=== PATIENT | male | born 2000 | race Caucasian/White ===

== ENCOUNTER 2019-11-29 20:36 | Inpatient (IN) | payer MEDICAID ==
[~2019-11-29] VITALS: Ht 180.3 cm; Wt 64.0 kg
[~2019-11-29 20:36] MED LIST: INSU100I18 SQ; INSU100I28 SQ
--- NOTE | 2019-11-29 20:42 | NUR ---
EKG DONE ON ARRIVAL.
--- NOTE | 2019-11-29 20:48 | NUR ---
PT BIB [facility] FROM [facility] FOR DKA AND PNA/SEPSIS. PT STS WASNT FEELING GOOD 3 DAYS AGO, DID METH. UPON ARRIVAL TO ER, BLOOD SUGAR CHECKED IN ELEVATOR 415, INSULIN RUNNING AT 6UNITS/HOUR. IVS X2. RECEIVED 2L NS, DATA COMMUNICATIONS ENGINEER. ABX ZOSYN GIVEN DATA COMMUNICATIONS ENGINEER. RITCHIE IN PLACE ON ARRIVAL, SECURMENT DEVICE IN PLACE. CONNECTED TO ALL MONITORING, RAPID RESP, TACHY HR. A&OX4, FOLLOWING COMMANDS. MD TO BEDSIDE. VERBAL ORDER RECEIVED FOR 3RD LITER NS TO BE STARTED AND TO DISCONTINUE INSULIN DRIP. PT GIVEN BLANKETS FOR COMFORT. CALL LIGHT WITHIN REACH. AWAITING FURTHER ORDERS AT THIS TIME.
[2019-11-29] MEDS ORDERED: INSULIN SINGLE DOSE, ER ONE (20:49)
--- NOTE | 2019-11-29 20:54 | NUR ---
PT MEDICATED PER EMAR. CALL LIGHT IN REACH. WILL CONTINUE TO MONITOR.
[2019-11-29] MEDS ORDERED: INSULIN REGULAR 100 UNITS/ML, 3ML VIAL IVPush ONE (21:00)
[2019-11-29] MEDS ORDERED: SODIUM CHLORIDE 0.9% 1,000ML IVBOLUS ONE (21:00)
[2019-11-29 21:46] LABS: AMPHETAMINE SCREEN, URINE Negative (Negative); BARBITURATE SCREEN, URINE Negative (Negative); BENZODIAZEPINE SCREEN, URINE Negative (Negative); CANNABINOID SCREEN, URINE Negative (Negative); COCAINE SCREEN, URINE Negative (Negative); METHADONE SCREEN, URINE Negative (Negative); OPIATE SCREEN, URINE Negative (Negative)
--- NOTE | 2019-11-29 21:54 | NUR ---
PHONE CALL TO LAB. LABS RUNNING NOW.
[2019-11-29 21:55] LABS: MEAN CORPUSCULAR HEMOGLOBIN 32.3 pg (27.5-34.5); MEAN CORPUSCULAR HGB CONC 33.8 g/dL (33.2-36.2); MEAN CORPUSCULAR VOLUME 95.5 fL (81-97); MEAN PLATELET VOLUME 6.5 fL (7.4-10.4); PLATELET COUNT 575 x10^3/uL (130-400); RED BLOOD COUNT 4.16 x10^6/uL (4.38-5.82); RED CELL DISTRIBUTION WIDTH 13.9 % (9.4-14.8)
[2019-11-29 21:58] LABS: FIO2 ROOM AIR %
[2019-11-29 22:02] LABS: ACETONE, SERUM Large (80mg/dL) mg/dL (Negative)
[2019-11-29 22:08] LABS: ALBUMIN 2.2 g/dL (3.4-5.0); ANION GAP 23 mmol/L (5-15); CALCIUM 7.4 mg/dL (8.5-10.1); CHLORIDE 102 mmol/L (98-107); CREATININE 0.97 mg/dL (0.7-1.3)
--- NOTE | 2019-11-29 22:16 | NUR ---
PT CURRENTLY SLEEPING COMFORTABLY IN ROOM, NADN. HR DECREASING BUT STILL TACHY AT 115, RR 24, OTHER VSS. ADMIT ORDERS RECEIVED. AWAITING BED AT THIS TIME. CALL LIGHT WITHIN REACH.
[2019-11-29] MEDS ORDERED: D5%-0.45% NACL 1,000 ML IV PRN (22:29)
[2019-11-29] MEDS ORDERED: REGULAR INSULIN 100 UNITS in SODIUM CHLORIDE 0.9% 99 ML IV PRN (22:29)
[2019-11-29] MEDS ORDERED: SODIUM BICARBONATE 1 MEQ/ML, 50ML VIAL IVPush ONE (22:30)
[2019-11-29] MEDS ORDERED: SODIUM BICARB 8.4%, 50ML SYRINGE IVPB PRN (22:30)
[2019-11-29] MEDS ORDERED: ONDANSETRON 2MG/ML, 2ML IVPush PRN (22:30)
[2019-11-29 22:34] LABS: MD YES
[2019-11-29 22:36] LABS: BAND#(MANUAL) 0.68 x10^3/uL; BANDS%(MANUAL) 3 % (0-7); LYMPH#(MANUAL) 4.79 x10^3/uL (1-6.1); LYMPHS% (MANUAL) 21 % (22-44); MONOS#(MANUAL) 0.68 x10^3/uL (0.3-2.7); MONOS% (MANUAL) 3 % (2-9); SEG#(MANUAL) 16.64 x10^3/uL (1.8-8); SEGS% (MANUAL) 73 % (42-75)
[2019-11-29 22:37] LABS: <PLATELET ESTIMATE> INCREASED; <RBC MORPHOLOGY> NORMAL; SMALL PLATELETS 1+
[2019-11-29] MEDS ORDERED: SODIUM BICARBONATE 1 MEQ/ML, 50ML VIAL ONE (22:41)
--- NOTE | 2019-11-29 22:49 | NUR ---
REPORT GIVEN TO YUNG RN, PT READY FOR TRANSPORT AT THIS TIME
[2019-11-29] MEDS: SODIUM CHLORIDE 0.9% 1,000 ML IV SCH ×2 (22:52→23:39)
[2019-11-30 01:38] LABS: ANION GAP 19 mmol/L (5-15); CALCIUM 7.4 mg/dL (8.5-10.1); CHLORIDE 107 mmol/L (98-107); CREATININE 0.77 mg/dL (0.7-1.3)
[2019-11-30] MEDS ORDERED: CLINDAMYCIN PMX 600MG/50ML 50 ML IV SCH (04:00)
[2019-11-30 04:34] LABS: ANION GAP 9 mmol/L (5-15); CALCIUM 7.5 mg/dL (8.5-10.1); CHLORIDE 109 mmol/L (98-107); CREATININE 0.67 mg/dL (0.7-1.3)
[2019-11-30] MEDS ORDERED: INSULIN GLARGINE 100 UNITS/ML, PEN SQ-INSULIN SCH (06:30)
[2019-11-30] MEDS: INSULIN LISPRO 100 UNITS/ML, PEN SQ-INSULIN SCH ×4 (07:44→20:49)
[2019-11-30] MEDS: INSULIN GLARGINE 100 UNITS/ML, PEN SQ-INSULIN SCH ×2 (08:31→20:49)
[2019-11-30] MEDS: AMPICILLIN/SULBACTAM 3 GM in SODIUM CHLORIDE 0.9% 100 ML IV SCH ×3 (11:36→22:36)
[2019-11-30] MEDS ORDERED: NICOTINE 21 MG/24 HR PATCH.TD24 ONE (16:43)
[2019-11-30] MEDS ORDERED: NICOTINE 21 MG/24 HR PATCH.TD24 TD SCH (17:00)
[2019-11-30 19:16] VITALS: BP 104/59
[2019-12-01 01:36] VITALS: BP 110/58
[2019-12-01] MEDS: AMPICILLIN/SULBACTAM 3 GM in SODIUM CHLORIDE 0.9% 100 ML IV SCH (05:18)
[2019-12-01 05:19] LABS: BASOPHILS # (AUTO) 0.03 x10^3/uL (0-0.3); BASOPHILS % (AUTO) 1 % (0-1); EOSINOPHILS # (AUTO) 0.03 x10^3/uL (0-0.8); EOSINOPHILS % (AUTO) 1 % (1-7); LYMPHOCYTES # (AUTO) 1.87 x10^3/uL (1-6.1); LYMPHOCYTES % (AUTO) 38 % (22-44); MD NO; MEAN CORPUSCULAR HEMOGLOBIN 32.1 pg (27.5-34.5); MEAN CORPUSCULAR HGB CONC 34.5 g/dL (33.2-36.2); MEAN CORPUSCULAR VOLUME 93.2 fL (81-97); MEAN PLATELET VOLUME 6.3 fL (7.4-10.4); MONOCYTES # (AUTO) 0.33 x10^3/uL (0-1.4); MONOCYTES % (AUTO) 7 % (2-9); NEUTROPHILS % (AUTO) 54 % (42-75); PLATELET COUNT 429 x10^3/uL (130-400); RED BLOOD COUNT 3.38 x10^6/uL (4.38-5.82); RED CELL DISTRIBUTION WIDTH 14.1 % (9.4-14.8)
[2019-12-01 05:20] LABS: ALBUMIN 1.7 g/dL (3.4-5.0); ANION GAP 8 mmol/L (5-15); CALCIUM 7.3 mg/dL (8.5-10.1); CHLORIDE 108 mmol/L (98-107)
[2019-12-01 05:24] LABS: ALANINE AMINOTRANSFERASE 192 U/L (12-78); ALKALINE PHOSPHATASE 257 U/L (45-117); BILIRUBIN,TOTAL 0.4 mg/dL (0.2-1.0); CREATININE 0.66 mg/dL (0.7-1.3); TOTAL PROTEIN 4.4 g/dL (6.4-8.2)
[2019-12-01] MEDS ORDERED: ENOXAPARIN 40 MG/0.4 ML SQ SCH (07:30)
[2019-12-01 07:36] VITALS: BP 112/63
[2019-12-01] MEDS: INSULIN GLARGINE 100 UNITS/ML, PEN SQ-INSULIN SCH (08:30)
[2019-12-01] MEDS: INSULIN LISPRO 100 UNITS/ML, PEN SQ-INSULIN SCH ×2 (08:31→11:33)
[2019-12-01] MEDS ORDERED: AMOXICILLIN/CLAV 875-125MG TABLET PO SCH (09:00)
[2019-12-01] MEDS ORDERED: INSU100I11 SQ-INSULIN (10:10)
[2019-12-01] MEDS ORDERED: INSU100I13 SQ-INSULIN (10:10)
[2019-12-01] MEDS ORDERED: AMOX1TAB12 PO (10:10)
== END 2019-12-01 12:35 | disposition home or self-care (01) | DRG 420 ==
LOC: ED 21:06 → EDIP 22:13 → CCU 23:00 → 3N 11-30 17:52 → DCLOUNGE 12-01 12:27
PROVIDERS: ADMIT Internal Medicine; ATTEND Internal Medicine
DX: E10.10 Type 1 diabetes mellitus with ketoacidosis without coma (principal); J69.0 Pneumonitis due to inhalation of food and vomit; E43 Unspecified severe protein-calorie malnutrition; R65.21 Severe sepsis with septic shock; A41.9 Sepsis, unspecified organism; E87.1 Hypo-osmolality and hyponatremia; E88.09 Other disorders of plasma-protein metabolism, not elsewhere classified; F17.210 Nicotine dependence, cigarettes, uncomplicated; Z79.4 Long term (current) use of insulin; Z91.14 Patient's other noncompliance with medication regimen; F15.10 Other stimulant abuse, uncomplicated; R94.5 Abnormal results of liver function studies
CPT/HCPCS: 36415; 71045; 80048; 80053; 80307; 82010; 82040; 82803; 82962; 83036; 83735; 84100; 84145; 85025; 87081; 93005; 96361; 96374; G0378; J0295; J1815; J7030